=== PATIENT | female | born 1995 | race Caucasian/White ===

== ENCOUNTER 2018-09-18 22:21 | Emergency (ER) | payer SELFPAY ==
[2018-09-19 04:12] VITALS: BP 115/69
--- NOTE | 2018-09-19 06:03 | ED ---
Allergic Reaction/Systemic - HPI Summary HPI Summary: Patient is a 23 y/o F presenting to ED with complaints of allergic reaction after peanut exposure. Patient has a known peanut allergy. She states that she had sampled some lópez earlier today and believes it was cooked in peanut oil. She states that after consuming the lópez, her right palm began to itch. She subsequently experienced nausea, coughing, SOB, and developed hives at her left arm. Patient took her epi-pen and Sx resolved. On triage, pain is denied, nothing is noted to aggravate/alleviate Sx. Home medications and allergies are reviewed. - History of Current Complaint Chief Complaint: EDAllergicReaction Time Seen by Provider: 09/19/18 03:48 Hx Obtained From: Patient Onset/Duration: Resolved Timing: Intermittent Pain Intensity: 0 Pain Scale Used: 0-10 Numeric Location: Discrete @ - hives left arm, pruritic right palm Character: Pruritus - right palm, Hives - left arm Aggravating Factor(s): Other - peanuts Alleviating Factor(s): Epinephrine Associated Signs And Symptoms: Positive: Difficulty Breathing, Nausea, Other: - positive - cough, pruritus, hives - Allergies/Home Medications Allergies/Adverse Reactions: Allergies Allergy/AdvReac Type Severity Reaction Status Date / Time peanut Allergy Hives Verified 09/18/18 22:24 Tree Nuts Allergy Hives Verified 09/18/18 22:24 PMH/Surg Hx/FS Hx/Imm Hx Sensory History: Denies: Hx Legally Blind, Hx Deafness Opthamlomology History: Denies: Hx Legally Blind EENT History: Denies: Hx Deafness Infectious Disease History: No Infectious Disease History: Denies: Traveled Outside the [place] in Last 30 Days - Family History Known Family History: Negative: Diabetes - Social History Alcohol Use: Occasionally Substance Use Type: Reports: None Smoking Status (MU): Never Smoked Tobacco Review of Systems Positive: Shortness Of Breath, Cough Positive: Nausea Skin: Other - positive - pruritus of right palm, left arm hives All Other Systems Reviewed And Are Negative: Yes Physical Exam - Summary Physical Exam Summary: VITAL SIGNS: Reviewed. GENERAL: Patient is a well-developed and nourished female who is lying comfortable in the stretcher. Patient is not in any acute respiratory distress. HEAD AND FACE: No signs of trauma. No ecchymosis, hematomas or skull depressions. No sinus tenderness. EYES: PERRLA, EOMI x 2, No injected conjunctiva, no nystagmus. EARS: Hearing grossly intact. Ear canals and tympanic membranes are within normal limits. MOUTH: Oropharynx within normal limits. NECK: Supple, trachea is midline, no adenopathy, no JVD, no carotid bruit, no c- spine tenderness, neck with full ROM CHEST: Symmetric, no tenderness at palpation LUNGS: Clear to auscultation bilaterally. No wheezing or crackles. CVS: Regular rate and rhythm, S1 and S2 present, no murmurs or gallops appreciated. ABDOMEN: Soft, non-tender. No signs of distention. No rebound no guarding, and no masses palpated. Bowel sounds are normal. EXTREMITIES: FROM in all major joints, no edema, no cyanosis or clubbing. NEURO: Alert and oriented x 3. No acute neurological deficits. Speech is normal and follows commands. SKIN: Dry and warm Triage Information Reviewed: Yes Vital Signs On Initial Exam: Initial Vitals Temp Pulse Resp BP Pulse Ox 99.4 F 112 18 135/86 96 09/18/18 22:23 09/18/18 22:23 09/18/18 22:23 09/18/18 22:23 09/18/18 22:23 Vital Signs Reviewed: Yes Diagnostics - Vital Signs Vital Signs Temp Pulse Resp BP Pulse Ox 09/19/18 04:12 98.3 F 85 16 115/69 99 09/19/18 03:19 97.4 F 116 18 150/82 98 09/19/18 01:00 98.3 F 84 18 147/86 99 09/18/18 22:23 99.4 F 112 18 135/86 96 - Laboratory Lab Statement: Any lab studies that have been ordered have been reviewed, and results considered in the medical decision making process. Allergic Reaction Course/Dx - Course Course Of Treatment: Patient is a 23 y/o F presenting to ED with complaints of allergic reaction after peanut exposure. Patient has a known peanut allergy. She states that she had sampled some lópez earlier today and believes it was cooked in peanut oil. She states that after consuming the lópez, her right palm began to itch. She subsequently experienced nausea, coughing, SOB, and developed hives at her left arm. Patient took her epi-pen and Sx resolved. Physical exam is normal. Patient was stable throughout ED stay, she was discharged to home to follow up with PCP. - Diagnoses Provider Diagnoses: Allergic reaction Discharge - Sign-Out/Discharge Documenting (check all that apply): Patient Departure - discharge Patient Received Moderate/Deep Sedation with Procedure: No - Discharge Plan Condition: Stable Disposition: HOME Prescriptions: predniSONE TAB* [Deltasone 20 MG TAB*] 40 mg PO DAILY #6 tab Patient Education Materials: Peanut Allergy (ED) Referrals: [facility] [Outside] - 3 Days Additional Instructions: RETURN TO ED FOR ANY NEW OR WORSENING SYMPTOMS. FOLLOW UP WITH YOUR PRIMARY CARE PHYSICIAN WITHIN THREE DAYS. - Attestation Statements Document Initiated by Scribe: Yes Documenting Scribe: MASSIEL HEART Provider For Whom Scribe is Documenting (Include Credential): FELIPE SEALS MD Scribe Attestation: MASSIEL Mes[place], scribed for FELIPE SEALS MD on 09/19/18 at 0811. Status of Scribe Document: Ready
== END 2018-09-19 04:12 | disposition home or self-care (01) ==
LOC: ED 22:21
DX: T78.40XA Allergy, unspecified, initial encounter (principal); X58.XXXA Exposure to other specified factors, initial encounter; Y92.9 Unspecified place or not applicable
CPT/HCPCS: 99282